=== PATIENT | male | born 1960 | race Caucasian/White ===

== ENCOUNTER 2017-10-28 14:16 | Emergency (ER) | payer OTHER ==
[~2017-10-28] VITALS: Ht 180.3 cm; Wt 97.5 kg
[2017-10-28 14:44] VITALS: BP 146/92
== END 2017-10-28 18:57 | disposition left against medical advice (07) ==
LOC: ER 14:16
DX: S61.411A Laceration without foreign body of right hand, initial encounter (principal); Z53.21 Procedure and treatment not carried out due to patient leaving prior to being seen by health care provider; W25.XXXA Contact with sharp glass, initial encounter; Y93.89 Activity, other specified; Y99.8 Other external cause status; Y92.89 Other specified places as the place of occurrence of the external cause
CPT/HCPCS: 73130

== ENCOUNTER 2023-10-19 05:08 | Inpatient (IN) | payer MEDICARE, OTHER ==
[~2023-10-19] VITALS: Ht 180.3 cm; Wt 97.9 kg
[2023-10-19 06:27] LABS: Basophils # (auto) 0 10 ^3/uL (0-0.2); Basophils % (auto) 0.6 % (0.0-2.0); Eosinophils # (auto) 0.3 10 ^3/uL (0-0.8); Eosinophils % (auto) 4.6 % (0.0-7.0); Hematocrit 45.3 % (41.0-53.0); Hemoglobin 15.6 g/dL (13.5-17.5); Lymphocytes # (auto) 2.2 10 ^3/uL (0.4-5.4); Lymphocytes % (auto) 30.1 % (10.0-50.0); Mean Corpuscular Hemoglobin 33.4 pg (28.0-32.0); Mean Corpuscular Hgb Conc. 34.4 g/dL (32.0-36.0); Mean Corpuscular Volume 97.3 fL (80.0-100.0); Monocytes # (auto) 0.5 10 ^3/uL (0-1.3); Monocytes % (auto) 6.8 % (0.0-12.0); Neutrophils # (auto) 4.2 10 ^3/uL (1.6-8.6); Neutrophils % (auto) 57.9 % (37.0-80.0); Nucleated Red Blood Cells % 0.1 %; Platelet Count (auto) 199 10^3/uL (140-450); Red Blood Cells 4.65 10^6/uL (4.5-5.90); Red Cell Distribution Width 13.3 % (11.8-14.3); White Blood Cell 7.3 10^3/uL (4.4-10.8)
[2023-10-19 06:47] LABS: Alanine Aminotransferase 20 U/L (7-40); Albumin 4.4 g/dL (3.2-4.8); Alkaline Phosphatase 127 U/L (46-116); Anion Gap 3 (5-15); Aspartate Aminotransferase 13 U/L (13-40); BUN/Creatinine Ratio 10.7 (10.0-20.0); Bilirubin, Total 0.8 mg/dL (0.2-1.0); Blood Urea Nitrogen 12 mg/dL (9-23); Calcium 9.8 mg/dL (8.7-10.4); Carbon Dioxide 28 mmol/L (20-30); Chloride 109 mmol/L (98-107); Glucose 101 mg/dL (74-106); Potassium 3.7 mmol/L (3.5-5.1); Sodium 140 mmol/L (136-145); Total Protein 6.7 g/dL (5.7-8.2)
[2023-10-19 06:59] LABS: INR 1.02 (0.9-1.15); Prothrombin Time 10.8 sec (9.3-11.8)
[2023-10-19 08:01] VITALS: PULSE 54; RESP 14; O2SAT 98
[2023-10-19] MEDS: SODIUM CHLORIDE 0.9% 1,000 ML IV SCH (11:00)
[2023-10-19] MEDS: ASPirin 325 MG TAB PO ONE (11:00)
[2023-10-19 11:21] LABS: Erythrocyte Sedimentation Rate 4 mm/hr (0-20)
[2023-10-19] MEDS ORDERED: NITROGLYCERIN 0.4 MG SL TAB SL PRN (11:45)
[2023-10-19 19:08] VITALS: PULSE 58; RESP 20; O2SAT 95
[2023-10-19 19:14] VITALS: BP 162/87; PULSE 61; RESP 16; TEMP 97.7; O2SAT 100
[2023-10-19 21:00] VITALS: BP 129/78; PULSE 58; RESP 20; TEMP 97.6; O2SAT 95
[2023-10-19] MEDS: ATORVASTATIN 20 MG TAB PO SCH (22:00)
[2023-10-20 01:00] VITALS: BP 121/71; PULSE 57; RESP 20; TEMP 98; O2SAT 93
[2023-10-20 05:00] VITALS: BP 103/70; PULSE 57; RESP 22; TEMP 98.2; O2SAT 96
[2023-10-20 06:54] LABS: Triglycerides 192 mg/dL (< 150)
[2023-10-20 06:55] LABS: LDL Cholesterol 118 mg/dL (< 100)
[2023-10-20 06:56] LABS: Cholesterol 183 mg/dL (< 200); HDL Cholesterol 38 mg/dL (40-59)
[2023-10-20 08:07] LABS: RPR Non Reactive (Non Reactive)
[2023-10-20 08:55] VITALS: BP 157/80; PULSE 56; RESP 19; TEMP 97.5; O2SAT 96
[2023-10-20] MEDS: ENOXAPARIN SOD 40 MG/0.4 ML SYRINGE SC SCH (10:00)
[2023-10-20] MEDS: ASPirin 81 mg TAB PO SCH (10:00)
[2023-10-20] MEDS: LOSARTAN POTASSIUM 25 MG TAB PO SCH (10:00)
[2023-10-20 12:45] VITALS: BP 152/88; PULSE 62; RESP 19; TEMP 98; O2SAT 92
[2023-10-20] MEDS ORDERED: hydrALAZINE HCL 20 MG/ML VL IV PRN (14:30)
[2023-10-20 17:00] VITALS: BP 147/84; PULSE 59; RESP 21; TEMP 97.9; O2SAT 98
[2023-10-20 21:00] VITALS: BP 127/87; PULSE 66; RESP 17; TEMP 98.3; O2SAT 93
[2023-10-20] MEDS: ATORVASTATIN 20 MG TAB PO SCH (22:00)
[2023-10-21 01:00] VITALS: BP 113/68; PULSE 58; RESP 17; TEMP 98.1; O2SAT 94
[2023-10-21 05:00] VITALS: BP 116/66; PULSE 53; RESP 17; TEMP 97.7; O2SAT 96
[2023-10-21 08:52] VITALS: BP 127/79; PULSE 60; RESP 19; TEMP 98.4; O2SAT 96
[2023-10-21 12:54] VITALS: BP 135/88; PULSE 60; RESP 19; TEMP 97.7; O2SAT 98
[2023-10-21 17:01] VITALS: BP 114/72; PULSE 55; RESP 18; TEMP 98.2; O2SAT 95
[2023-10-21] MEDS: IOHEXOL 350 MG/ML 100ML IJ ONE (17:04)
[2023-10-21 21:00] VITALS: BP 149/84; PULSE 56; RESP 16; TEMP 98.5; O2SAT 94
[2023-10-22 05:00] VITALS: BP 133/79; PULSE 52; RESP 18; TEMP 98.1; O2SAT 97
[2023-10-22 08:00] VITALS: BP 147/86; PULSE 58; RESP 16; TEMP 98.7; O2SAT 96
[2023-10-22 08:30] VITALS: PULSE 58; RESP 16; O2SAT 96
[2023-10-22 11:03] LABS: Hepatitis B Surface Antigen Negative (Negative)
[2023-10-22] MEDS ORDERED: LORazepam 2MG/ML-1ML VIAL IV PRN (11:15)
[2023-10-22 11:29] LABS: Hepatitis C Antibody Negative (Negative)
[2023-10-22] MEDS ORDERED: GADOTERATE MEG 10 MMOL/20ml INJ (0.5MMOL/ml) IV ONE (11:33)
[2023-10-22 12:00] VITALS: BP 158/92; PULSE 66; RESP 16; TEMP 98.6; O2SAT 96
[2023-10-22 16:00] VITALS: BP 158/83; PULSE 60; RESP 16; TEMP 98.9; O2SAT 96
[2023-10-22 21:00] VITALS: BP 148/82; PULSE 60; RESP 17; TEMP 98.5; O2SAT 95
[2023-10-23 01:00] VITALS: BP 124/76; PULSE 55; RESP 18; TEMP 98.1; O2SAT 96
[2023-10-23 04:59] VITALS: BP 122/71; PULSE 60; RESP 16; TEMP 98; O2SAT 98
[2023-10-23 08:49] VITALS: BP 138/78; PULSE 57; RESP 18; TEMP 98.3; O2SAT 95
[2023-10-23] MEDS ORDERED: LOSA-533 PO (11:40)
[2023-10-23] MEDS ORDERED: ATOR-507 PO (11:40)
[2023-10-23] MEDS ORDERED: ASPI-628 PO (11:40)
[2023-10-23 13:00] VITALS: BP_SYST 113; BP_SYST 144; BP_DIAS 65; BP_DIAS 80; PULSE 64; PULSE 80; RESP 18; TEMP 98.2; O2SAT 95; O2SAT 97
== END 2023-10-23 15:07 | disposition home or self-care (01) | DRG 305 ==
LOC: ER 05:08 → OVERFLOW 11:39 → WEST WING 19:09
PROVIDERS: ADMIT Nurse Practitioner Family; ATTEND Family Medicine
DX: I16.0 Hypertensive urgency (principal); E66.9 Obesity, unspecified; E78.00 Pure hypercholesterolemia, unspecified; I44.4 Left anterior fascicular block; M10.9 Gout, unspecified; F17.210 Nicotine dependence, cigarettes, uncomplicated; I10 Essential (primary) hypertension; F10.129 Alcohol abuse with intoxication, unspecified; Y90.9 Presence of alcohol in blood, level not specified; F41.1 Generalized anxiety disorder; Z68.30 Body mass index [BMI] 30.0-30.9, adult; Z71.41 Alcohol abuse counseling and surveillance of alcoholic
CPT/HCPCS: 36415; 70450; 70496; 70551; 70553; 71045; 80053; 80061; 80320; 82024; 82962; 83036; 84146; 84443; 85025; 85610; 85652; 86592; 86803; 87340; 93005; 93306; 93886; 97163; G0378